=== PATIENT | female | born 1955 | race Caucasian/White ===

== ENCOUNTER 2018-04-19 15:37 | Emergency (ER) | payer MEDICARE ==
[2018-04-19] MEDS ORDERED: D50W (25GM) Syringe IV ONE ×2 (16:01)
[2018-04-19] MEDS ORDERED: CATAPRES PO ONE (16:54)
[2018-04-19 17:29] LABS: Basophils % (Auto) 0.6 % (0.0-1.8); Eosinophils % (Auto) 0.5 % (0.0-4.3); Hemoglobin 11.9 gm/dl (10.1-14.3); Lymphocytes # (Auto) 0.9 K/mm3 (1.2-5.4); Lymphocytes % (Auto) 10.5 % (13.4-35.0); Mean Corpuscular HGB Conc 32 % (30-34); Mean Corpuscular Hemoglobin 28 pg (28-32); Mean Corpuscular Volume 88 fl (79-97); Monocytes # (Auto) 0.3 K/mm3 (0.0-0.8); Monocytes % (Auto) 3.3 % (0.0-7.3); Platelet Count 320 K/mm3 (140-440); Red Blood Count 4.21 M/mm3 (3.65-5.03); Red Cell Distribution Width 16.5 % (13.2-15.2)
[2018-04-19 17:39] LABS: Calcium 8.2 mg/dL (8.4-10.2)
--- NOTE | 2018-04-19 17:49 | Emergency Department Report ---
ED Altered Mental Status HPI - General Chief Complaint: Hypoglycemia Stated Complaint: WEAKNESS Time Seen by Provider: 04/19/18 16:06 Source: family, EMS Mode of arrival: Stretcher Limitations: Language Barrier - History of Present Illness Initial Comments: 62-year-old female with history of diabetes presents to the ED with hypoglycemia. Family states patient was unresponsive at home. EMS was called and blood sugar was 15. One half amp of D50 was given and patient was brought to ED. Family states patient took her insulin but did not eat. Also states patient noncompliant with blood pressure medication. MD Complaint: altered mental status -: Sudden Severity: moderate Consistency of Symptoms: constant Context: diabetes Associated Symptoms: denies other symptoms Treatments Prior to Arrival: glucose - Related Data Home Medications Medication Instructions Recorded Confirmed Last Taken Insulin Aspart [NovoLOG Flexpen] 5 units SQ AC 04/19/18 04/19/18 Unknown Insulin Glargine,Hum.rec.anlog 10 units SQ QHS 04/19/18 04/19/18 Unknown [Lantus] Allergies Allergy/AdvReac Type Severity Reaction Status Date / Time No Known Allergies Allergy Verified 04/19/18 15:55 ED Review of Systems ROS: Stated complaint: WEAKNESS Other details as noted in HPI Comment: All other systems reviewed and negative Constitutional: denies: fever Respiratory: denies: shortness of breath Cardiovascular: denies: chest pain Gastrointestinal: denies: abdominal pain, vomiting Neurological: denies: headache ED Past Medical Hx - Past Medical History Previous Medical History?: Yes Hx Hypertension: Yes Hx Diabetes: Yes - Social History Smoking Status: Never Smoker Substance Use Type: None - Medications Home Medications: Home Medications Medication Instructions Recorded Confirmed Last Taken Type Insulin Aspart [NovoLOG Flexpen] 5 units SQ AC 04/19/18 04/19/18 Unknown History Insulin Glargine,Hum.rec.anlog 10 units SQ QHS 04/19/18 04/19/18 Unknown History [Lantus] ED Physical Exam - General Limitations: Language Barrier General appearance: alert, in no apparent distress - Head Head exam: Present: atraumatic, normocephalic - Eye Eye exam: Present: normal appearance, PERRL, EOMI - ENT ENT exam: Present: normal exam, mucous membranes moist - Neck Neck exam: Present: normal inspection - Respiratory Respiratory exam: Present: normal lung sounds bilaterally. Absent: respiratory distress - Cardiovascular Cardiovascular Exam: Present: regular rate, normal rhythm - GI/Abdominal GI/Abdominal exam: Present: soft. Absent: tenderness - Extremities Exam Extremities exam: Present: normal inspection - Neurological Exam Neurological exam: Present: alert, other (at baseline per family) - Psychiatric Psychiatric exam: Present: normal affect, normal mood - Skin Skin exam: Present: warm, dry, intact, normal color ED Course Vital Signs 04/19/18 04/19/18 04/19/18 15:55 16:01 17:01 Temperature 97.9 F Pulse Rate 65 67 60 Respiratory 18 16 16 Rate Blood Pressure 198/78 Blood Pressure 195/84 192/82 [Left] O2 Sat by Pulse 98 99 100 Oximetry 04/19/18 04/19/18 18:01 19:25 Temperature 97.9 F Pulse Rate 65 68 Respiratory 16 16 Rate Blood Pressure Blood Pressure 167/83 212/82 [Left] O2 Sat by Pulse 100 100 Oximetry - Lab Data Result diagrams: 04/19/18 17:04 04/19/18 17:04 Lab Results 04/19/18 04/19/18 04/19/18 Range/Units 15:47 16:30 17:04 WBC 8.1 (4.5-11.0) K/mm3 RBC 4.21 (3.65-5.03) M/mm3 Hgb 11.9 (10.1-14.3) gm/dl Hct 37.0 (30.3-42.9) % MCV 88 (79-97) fl MCH 28 (28-32) pg MCHC 32 (30-34) % RDW 16.5 H (13.2-15.2) % Plt Count 320 (140-440) K/mm3 Lymph % (Auto) 10.5 L (13.4-35.0) % Rank[place] % (Auto) 3.3 (0.0-7.3) % Eos % (Auto) 0.5 (0.0-4.3) % Baso % (Auto) 0.6 (0.0-1.8) % Lymph # 0.9 L (1.2-5.4) K/mm3 Rankin # 0.3 (0.0-0.8) K/mm3 Eos # 0.0 (0.0-0.4) K/mm3 Baso # 0.0 (0.0-0.1) K/mm3 Seg Neutrophils % 85.1 H (40.0-70.0) % Seg Neutrophils # 6.9 (1.8-7.7) K/mm3 Sodium (137-145) mmol/L Potassium (3.6-5.0) mmol/L Chloride (98-107) mmol/L Carbon Dioxide (22-30) mmol/L Anion Gap mmol/L BUN (7-17) mg/dL Creatinine (0.7-1.2) mg/dL Estimated GFR ml/min BUN/Creatinine Ratio % Glucose (65-100) mg/dL POC Glucose < 40 L 48 L (70-105) Calcium (8.4-10.2) mg/dL 04/19/18 04/19/18 04/19/18 Range/Units 17:04 17:15 18:37 WBC (4.5-11.0) K/mm3 RBC (3.65-5.03) M/mm3 Hgb (10.1-14.3) gm/dl Hct (30.3-42.9) % MCV (79-97) fl MCH (28-32) pg MCHC (30-34) % RDW (13.2-15.2) % Plt Count (140-440) K/mm3 Lymph % (Auto) (13.4-35.0) % Rankin % (Auto) (0.0-7.3) % Eos % (Auto) (0.0-4.3) % Baso % (Auto) (0.0-1.8) % Lymph # (1.2-5.4) K/mm3 Rankin # (0.0-0.8) K/mm3 Eos # (0.0-0.4) K/mm3 Baso # (0.0-0.1) K/mm3 Seg Neutrophils % (40.0-70.0) % Seg Neutrophils # (1.8-7.7) K/mm3 Sodium 129 L (137-145) mmol/L Potassium 4.9 (3.6-5.0) mmol/L Chloride 98.4 (98-107) mmol/L Carbon Dioxide 18 L (22-30) mmol/L Anion Gap 18 mmol/L BUN 25 H (7-17) mg/dL Creatinine 2.4 H (0.7-1.2) mg/dL Estimated GFR 20 ml/min BUN/Creatinine Ratio 10 % Glucose 139 H (65-100) mg/dL POC Glucose 125 H 108 H (70-105) Calcium 8.2 L (8.4-10.2) mg/dL - Medical Decision Making 62-year-old female presented to ED by EMS with hypoglycemia. Initial Accu-Chek was 15. She was given D50 and also given food here in ED. Family states patient took insulin without eating. Patient currently awake and alert. Most recent Accu-Chek is 105. Initial initial systolic BP in the 200s. Patient did not take BP meds today. Clonidine given, BP improved. Labs show a creatinine of 2.4 with normal BUN. Likely chronic given patient's history of hypertension and diabetes, no previous labs for comparison. Will d/c and have patient follow up with PCP. - Differential Diagnosis hypoglycemia Critical care attestation.: If time is entered above; I have spent that time in minutes in the direct care of this critically ill patient, excluding procedure time. ED Disposition Clinical Impression: Hypoglycemia, Essential hypertension Disposition: DC-01 TO HOME OR SELFCARE Is pt being admited?: No Condition: Stable Instructions: Hypertension (ED) Referrals: PRIMARY CARE, [Primary Care Provider] - 3-5 Days Time of Disposition: 18:50
[2018-04-19 19:46] VITALS: BP 212/82
== END 2018-04-19 19:35 | disposition home or self-care (01) ==
LOC: ED 15:37
DX: E11.649 Type 2 diabetes mellitus with hypoglycemia without coma (principal); I10 Essential (primary) hypertension
CPT/HCPCS: 36415; 80048; 82962; 85025; 96374; 96376; 99284

== ENCOUNTER 2019-08-21 14:41 | Inpatient (IN) | payer MEDICARE ==
--- NOTE | 2019-08-21 16:41 | Emergency Department Report ---
HPI - General Chief Complaint: Medical Clearance Time Seen by Provider: 08/21/19 16:23 - HPI HPI: 64-year-old female presents to the emergency department from dialysis with the complaint of uncontrolled blood pressure that caused her to not get dialyzed t [facility]. She normally gets dialysis on Wednesday/Wednesday/Wednesday and did get dialyzed last Wednesday. Her towboat operator is Dr. Lopez. The patient does not speak much Singaporean show the patient's family members at bedside translating. She says that she believes the patient did get some type of blood pressure medication prior to transfer here. The patient denies any chest pain, nausea or vomiting, abdominal pain, edema, or acute shortness of breath. Patient does have history of CVA, diabetes, hypertension, on top of the end-stage renal disease. ED Past Medical Hx - Past Medical History Hx Hypertension: Yes Hx CVA: Yes Hx Diabetes: Yes Hx Renal Disease: Yes (Dialysis M-W-F) - Surgical History Additional Surgical History: AV graft left arm - Social History Smoking Status: Former Smoker Substance Use Type: None - Medications Home Medications: Home Medications Medication Instructions Recorded Confirmed Last Taken Type Insulin Aspart (Nf) [NovoLOG 5 units SQ AC 04/19/18 08/21/19 Unknown History Flexpen] Insulin Glargine,Hum.rec.anlog 10 units SQ QHS 04/19/18 08/21/19 Unknown History [Lantus] Aspirin [Aspirin BABY CHEW TAB] 81 mg PO QDAY 08/21/19 08/21/19 Unknown History AtorvaSTATin [Lipitor] 40 mg PO QHS 08/21/19 08/21/19 Unknown History Calcium Acetate [Phoslo] 1,334 mg PO TID 08/21/19 08/21/19 Unknown History Clopidogrel [Plavix] 75 mg PO DAILY 08/21/19 08/21/19 Unknown History Losartan [Cozaar] 100 mg PO QDAY 08/21/19 08/21/19 Unknown History Metoprolol [Lopressor TAB] 50 mg PO DAILY 08/21/19 08/21/19 Unknown History amLODIPine 10 mg PO DAILY 08/21/19 08/21/19 Unknown History hydrALAZINE [Apresoline TAB] 100 mg PO TID 08/21/19 08/21/19 Unknown History ED Review of Systems ROS: Stated complaint: HYPERTENSION Other details as noted in HPI Comment: All other systems reviewed and negative Constitutional: denies: chills, fever Eyes: denies: eye pain, vision change ENT: denies: ear pain, throat pain Respiratory: denies: cough, wheezing Cardiovascular: denies: chest pain, edema Gastrointestinal: denies: abdominal pain, vomiting Genitourinary: denies: dysuria, discharge Musculoskeletal: denies: back pain, arthralgia Skin: denies: rash, lesions Neurological: denies: headache, weakness Physical Exam - Physical Exam Vital Signs: Vital Signs 08/21/19 16:09 Temperature 97.4 F L Pulse Rate 58 L Respiratory 15 Rate Blood Pressure 131/77 O2 Sat by Pulse 97 Oximetry Physical Exam: GENERAL: The patient is well-developed well-nourished. HEENT: Normocephalic. Atraumatic. Patient has moist mucous membranes. EYES: Extraocular motions are intact. NECK: Supple. Trachea is midline. CHEST/LUNGS: Clear to auscultation. There is no respiratory distress noted. HEART/CARDIOVASCULAR: Regular. There is no tachycardia. There is no murmur. ABDOMEN: Abdomen is soft, nontender. Patient has normal bowel sounds. There is no abdominal distention. SKIN:Skin is warm and dry. . NEURO: The patient is awake, alert, and cooperative. The patient has no focal neurologic deficits. MUSCULOSKELETAL: There is no tenderness or deformity. There is no evidence of acute injury. Patent Left upper extremity dialysis fistula. ED Course Vital Signs 08/21/19 16:09 Temperature 97.4 F L Pulse Rate 58 L Respiratory 15 Rate Blood Pressure 131/77 O2 Sat by Pulse 97 Oximetry - Consultations Consultation #1: 08/21/19 19:53 I spoke with the towboat operator on-call for [facility], Dr. Robbins, who recommended admitting this patient to receive dialysis tomorrow secondary to the patient's hypertensive urgency. ED Medical Decision Making - Lab Data Result diagrams: 08/21/19 16:35 08/21/19 16:35 - Medical Decision Making This patient presents after missing her last dialysis session this morning secondary to extremely elevated blood pressure. It appears that the first blood pressure tested here was a false reading as she immediately went to hypertensive urgency or and accelerated hypertension. She was given some IV hydralazine with some mild improvement. Labs are mostly unremarkable except for her end-stage renal disease. Nephrology was contacted and consult. Patient will be admitted to the hospital for further evaluation and treatment and was accepted for admission by the hospitalist, Dr. Kraus. - Differential Diagnosis accelerated hypertension, CHF, hyperkalemia Critical Care Time: No Critical care attestation.: If time is entered above; I have spent that time in minutes in the direct care of this critically ill patient, excluding procedure time. ED Disposition Clinical Impression: Accelerated hypertension, ESRD needing dialysis Disposition: OP ADMIT IP TO THIS HOSP Is pt being admited?: Yes Condition: Fair Time of Disposition: 19:55
[2019-08-21 16:46] LABS: Basophils # (Auto) 0.1 K/mm3 (0.0-0.1); Basophils % (Auto) 1.4 % (0.0-1.8); Eosinophils # (Auto) 0.8 K/mm3 (0.0-0.4); Eosinophils % (Auto) 9.1 % (0.0-4.3); Lymphocytes # (Auto) 2.1 K/mm3 (1.2-5.4); Lymphocytes % (Auto) 22.6 % (13.4-35.0); Mean Corpuscular HGB Conc 31 % (30-34); Mean Corpuscular Volume 85 fl (79-97); Monocytes # (Auto) 0.8 K/mm3 (0.0-0.8); Monocytes % (Auto) 8.4 % (0.0-7.3); Platelet Count 228 K/mm3 (140-440); Red Blood Count 5.33 M/mm3 (3.65-5.03); Red Cell Distribution Width 17.6 % (13.2-15.2)
[2019-08-21 16:47] LABS: Hematocrit 45.5 % (30.3-42.9)
[2019-08-21 17:05] LABS: Calcium 8.8 mg/dL (8.4-10.2)
[2019-08-21] MEDS ORDERED: hydrALAZINE 20 MG/1 ML INJ IV ONE (17:09)
[2019-08-21] MEDS ORDERED: ALBUTEROL 2.5 MG/3 ML NEBU IH PRN (17:42)
[2019-08-21] MEDS ORDERED: ONDANSETRON 4 MG/2 ML INJ IV PRN (17:42)
[2019-08-21] MEDS ORDERED: ACETAMINOPHEN 325 MG TAB PO PRN (17:42)
--- NOTE | 2019-08-21 17:42 | History and Physical Report ---
History of Present Illness Chief complaint: I could not get dialysis because my blood pressure was high History of present illness: 64-year-old female with ESRD on HD(M,W,F), CVA, DM, HTN presents to the emergency department for evaluation. Patient states that she was in her usual state of health and presented to dialysis clinic today for her routine dialysis. Patient was unable to undergo dialysis due to elevated blood pressure. Patient was instructed to seek further care at [facility]. EMS was notified and upon arrival the patient was found to be in distress. The patient was subsequently transferred to [facility] for further care and evaluation. Patient seen and evaluated in the [facility] emergency department. Lab and imaging studies reviewed. Patient was found to have end-stage renal disease in need of dialysis, malignant hypertension, and metabolic acidosis. Patient placed in observation status and admitted to [facility] unit for medical stabilization due to high risk for decompensation. Patient treated with antihypertensive therapy. Nephrology consulted in ED for urgent dialysis. No reports of fever, chills, chest pain, palpitations, nausea vomiting diarrhea, productive cough, skin rash, recent ill contacts. No prior admission for review. No medication listed at time of admission for reconciliation. Advanced care planning conducted in ED. Past History Past Medical History: ESRD, hypertension, other (See HPI) Past Surgical History: Other (Left upper extremity AV fistula) Social history: , lives with family. denies: smoking, alcohol abuse Family history: hypertension Medications and Allergies Allergies Allergy/AdvReac Type Severity Reaction Status Date / Time Penicillins Allergy Vomiting Verified 08/21/19 17:54 Home Medications Medication Instructions Recorded Confirmed Last Taken Type Insulin Aspart (Nf) [NovoLOG 5 units SQ AC 04/19/18 08/21/19 Unknown History Flexpen] Insulin Glargine,Hum.rec.anlog 10 units SQ QHS 04/19/18 08/21/19 Unknown History [Lantus] Aspirin [Aspirin BABY CHEW TAB] 81 mg PO QDAY 08/21/19 08/21/19 Unknown History AtorvaSTATin [Lipitor] 40 mg PO QHS 08/21/19 08/21/19 Unknown History Calcium Acetate [Phoslo] 1,334 mg PO TID 08/21/19 08/21/19 Unknown History Clopidogrel [Plavix] 75 mg PO DAILY 08/21/19 08/21/19 Unknown History Losartan [Cozaar] 100 mg PO QDAY 08/21/19 08/21/19 Unknown History Metoprolol [Lopressor TAB] 50 mg PO DAILY 08/21/19 08/21/19 Unknown History amLODIPine 10 mg PO DAILY 08/21/19 08/21/19 Unknown History hydrALAZINE [Apresoline TAB] 100 mg PO TID 08/21/19 08/21/19 Unknown History Review of Systems Constitutional: other (High blood pressure), no weight loss, no weight gain, no fever, no sweats Ears, nose, mouth and throat: no ear discharge, no tinnitis, no decreased hearing, no sinus pressure Breasts: no change in shape, no swelling, no mass Cardiovascular: no chest pain, no orthopnea, no rapid/irregular heart beat, no syncope, no lightheadedness Respiratory: no cough, no cough with sputum, no hemoptysis, no dyspnea on exerti on Gastrointestinal: no abdominal pain, no nausea, no diarrhea, no constipation, no hematemesis Genitourinary Female: no pelvic pain, no flank pain, no menorrhagia, no dysuria, no urinary frequency Rectal: no pain, no incontinence, no bleeding Musculoskeletal: no neck stiffness, no shooting arm pain, no arm numbness/tingling, no shooting leg pain, no leg numbness/tingling, no muscle weakness, no myalgias, no limitation of motion Integumentary: no rash, no pruritis, no redness, no sores, no wounds Neurological: no head injury, no transient paralysis, no weakness, no parathesias, no tingling, no tremors, no migraines, no convulsions, no aphasia, no confusion, no memory loss, no changes in smell/taste Psychiatric: no anxiety, no memory loss, no change in sleep habits, no sleep disturbances, no insomnia, no hypersomnia, no change in appetite, no change in libido, no disorientation, no paranoia, no depression, no hopelessness, no anxiety attacks, no difficulties concentrating, no confusion, no irritability, no mood swings Endocrine: no cold intolerance, no heat intolerance, no polyphagia, no excessive thirst, no increase in ring/shoe/hat size, no recent glucocorticoid use Hematologic/Lymphatic: no easy bruising, no easy bleeding, no lymphadenopathy Allergic/Immunologic: no urticaria, no allergic rhinitis, no wheezing, no persistent infections, no anaphylaxis Exam - Constitutional Vitals: Temp Pulse Resp BP Pulse Ox 97.4 F L 58 L 15 131/77 97 08/21/19 16:09 08/21/19 16:09 08/21/19 16:38 08/21/19 16:09 08/21/19 16:09 General appearance: Present: mild distress, cachectic - EENT Eyes: Present: PERRL ENT: hearing intact, clear oral mucosa - Neck Neck: Present: supple, normal ROM - Respiratory Respiratory effort: normal Respiratory: bilateral: CTA - Cardiovascular Heart Sounds: Present: S1 & S2. Absent: rub, click - Extremities Extremities: pulses symmetrical, No edema Peripheral Pulses: within normal limits - Abdominal General gastrointestinal: Present: soft, non-tender, non-distended, normal bowel sounds Female genitourinary: Present: normal - Integumentary Integumentary: Present: clear, warm, dry - Musculoskeletal Musculoskeletal: gait normal, strength equal bilaterally - Psychiatric Psychiatric: appropriate mood/affect, intact judgment & insight - Neurologic Neurologic: CNII-XII intact, moves all extremities Results - Labs CBC & Chem 7: 08/21/19 16:35 08/21/19 16:35 Labs: Abnormal lab results 08/21/19 08/21/19 Range/Units 16:35 16:35 RBC 5.33 H (3.65-5.03) M/mm3 Hct 45.5 H (30.3-42.9) % MCH 26 L (28-32) pg RDW 17.6 H (13.2-15.2) % [place] % (Auto) 8.4 H (0.0-7.3) % Eos % (Auto) 9.1 H (0.0-4.3) % Eos # 0.8 H (0.0-0.4) K/mm3 Sodium 134 L (137-145) mmol/L Chloride 92.8 L (98-107) mmol/L Carbon Dioxide 19 L (22-30) mmol/L BUN 77 H (7-17) mg/dL Creatinine 8.9 H (0.7-1.2) mg/dL Glucose 168 H (65-100) mg/dL Assessment and Plan - Patient Problems (1) ESRD needing dialysis Current Visit: Yes Status: Acute Plan to address problem: Nephrology consulted in ED, BMP, dialysis as per renal team, strict I's/O, daily weight, avoid nephrotoxic agents. Repeat BMP in a.m. (2) Acidosis Current Visit: Yes Status: Acute Plan to address problem: Urgent dialysis, supportive care, BMP, repeat BMP in a.m. (3) Accelerated hypertension Current Visit: Yes Status: Acute Plan to address problem: Monitor blood pressure every shift, continue prehospital antihypertensive therapy, IV hydralazine as needed. (4) DVT prophylaxis Current Visit: Yes Status: Acute Plan to address problem: SCD to bilateral lower extremities while in bed, prophylactic heparin. (5) Advance care planning Current Visit: Yes Status: Acute Plan to address problem: Patient is full code, disease education conducted at the bedside, patient and family knowledge understanding and agreement with care plan, +30 minutes.
[2019-08-21] MEDS ORDERED: DEXTROSE 50% IN WATER (25GM) 50 ML SYRINGE IV PRN (17:44)
[2019-08-21] MEDS ORDERED: CALCIUM ACETATE 667 MG CAP PO SCH (20:00)
[2019-08-21] MEDS: hydrALAZINE 100 MG TAB PO SCH (20:02)
[2019-08-21] MEDS: INSULIN LISPRO 100 UNIT/ML SUB-Q SCH (20:04)
[2019-08-21] MEDS ORDERED: SODIUM CHLORIDE 0.9% 100 ML IV PRN (23:57)
[2019-08-22] MEDS: INSULIN LISPRO 100 UNIT/ML SUB-Q SCH ×4 (00:27→18:43)
[2019-08-22] MEDS: hydrALAZINE 20 MG/1 ML INJ IV PRN ×2 (03:18→12:54)
[2019-08-22 05:29] LABS: Calcium 8.9 mg/dL (8.4-10.2)
[2019-08-22] MEDS: hydrALAZINE 100 MG TAB PO SCH ×3 (08:01→20:59)
[2019-08-22] MEDS ORDERED: NON-FORMULARY EACH (Losartan [Cozaar] 100 MG) PO SCH (10:00)
--- NOTE | 2019-08-22 10:28 | Consultation ---
History of Present Illness - Reason for Consult Consult date: 08/22/19 end stage renal disease, accelerated hypertension Requesting physician: EUGENIO DUNCAN - History of Present Illness 64-year-old female presents to the emergency department from dialysis with the complaint of uncontrolled blood pressure that caused her to not get dialyzed today. She normally gets dialysis on Wednesday/Wednesday/Wednesday and did get dialyzed last Wednesday. Her electron beam welder is Dr. Lopez. The patient does not speak much Syriac show the patient's family members at bedside translating. She says that she believes the patient did get some type of blood pressure medication prior to transfer here. The patient denies any chest pain, nausea or vomiting, abdominal pain, edema, or acute shortness of breath. Patient does have history of CVA, diabetes, hypertension, on top of the end-stage renal disease. - Past Medical History Hx Hypertension: Yes Hx CVA: Yes Hx Diabetes: Yes Hx Renal Disease: Yes (Dialysis M-W-F) - Surgical History Additional Surgical History: AV graft left arm - Social History Smoking Status: Former Smoker Substance Use Type: None ROS: Stated complaint: HYPERTENSION Other details as noted in HPI Comment: All other systems reviewed and negative Constitutional: denies: chills, fever Eyes: denies: eye pain, vision change ENT: denies: ear pain, throat pain Respiratory: denies: cough, wheezing Cardiovascular: denies: chest pain, edema Gastrointestinal: denies: abdominal pain, vomiting Genitourinary: denies: dysuria, discharge Musculoskeletal: denies: back pain, arthralgia Skin: denies: rash, lesions Neurological: denies: headache, weakness Past History Past Medical History: ESRD, hypertension, other (See HPI) Past Surgical History: Other (Left upper extremity AV fistula) Social history: , lives with family. denies: smoking, alcohol abuse Family history: hypertension Medications and Allergies Allergies Allergy/AdvReac Type Severity Reaction Status Date / Time Penicillins Allergy Vomiting Verified 08/21/19 17:54 Home Medications Medication Instructions Recorded Confirmed Last Taken Type Insulin Aspart (Nf) [NovoLOG 5 units SQ AC 04/19/18 08/21/19 Unknown History Flexpen] Insulin Glargine,Hum.rec.anlog 10 units SQ QHS 04/19/18 08/21/19 Unknown History [Lantus] Aspirin [Aspirin BABY CHEW TAB] 81 mg PO QDAY 08/21/19 08/21/19 Unknown History AtorvaSTATin [Lipitor] 40 mg PO QHS 08/21/19 08/21/19 Unknown History Calcium Acetate [Phoslo] 1,334 mg PO TID 08/21/19 08/21/19 Unknown History Clopidogrel [Plavix] 75 mg PO DAILY 08/21/19 08/21/19 Unknown History Losartan [Cozaar] 100 mg PO QDAY 08/21/19 08/21/19 Unknown History Metoprolol [Lopressor TAB] 50 mg PO DAILY 08/21/19 08/21/19 Unknown History amLODIPine 10 mg PO DAILY 08/21/19 08/21/19 Unknown History hydrALAZINE [Apresoline TAB] 100 mg PO TID 08/21/19 08/21/19 Unknown History Active Meds: Active Medications Acetaminophen (Tylenol) 650 mg PO Q4H PRN PRN Reason: Pain MILD(1-3)/Fever >100.5/SMITH Albuterol (Proventil) 2.5 mg IH Q4HRT PRN PRN Reason: Shortness Of Breath Amlodipine Besylate (Amlodipine) 10 mg PO DAILY [facility] Aspirin (Baby Aspirin) 81 mg PO QDAY [facility] Atorvastatin Calcium (Lipitor) 40 mg PO QHS [facility] Last Admin: 08/21/19 22:14 Dose: 40 mg Documented by: Calcium Acetate (Phoslo) 1,334 mg PO TIDWM [facility] Clopidogrel Bisulfate (Plavix) 75 mg PO DAILY [facility] Dextrose (D50w (25gm) Syringe) 50 ml IV Q30MIN PRN; Protocol PRN Reason: Hypoglycemia Hydralazine HCl (Apresoline) 100 mg PO TID [facility] Last Admin: 08/22/19 08:01 Dose: Not Given Documented by: Hydralazine HCl (Apresoline) 10 mg IV Q4HR PRN PRN Reason: HTN SYS>160 Last Admin: 08/22/19 03:18 Dose: 10 mg Documented by: Sodium Chloride (Nacl 0.9%) 100 mls @ 999 mls/hr IV HERMINIO PRN PRN Reason: Hypotension Insulin Human Lispro (Humalog) 0 unit SUB-Q Q6HR [facility]; Protocol Last Admin: 08/22/19 06:05 Dose: Not Given Documented by: Losartan Potassium (Cozaar) 100 mg PO QDAY [facility] Metoprolol Tartrate (Metoprolol) 50 mg PO DAILY [facility] Ondansetron HCl (Zofran) 4 mg IV Q8H PRN PRN Reason: Nausea And Vomiting Sodium Chloride (Sodium Chloride Flush Syringe 10 Ml) 10 ml IV BID [facility] Last Admin: 08/21/19 22:13 Dose: 10 ml Documented by: Sodium Chloride (Sodium Chloride Flush Syringe 10 Ml) 10 ml IV PRN PRN PRN Reason: LINE FLUSH Exam - Vital Signs Vital signs: Vital Signs Pulse Resp BP Pulse Ox 56 L 16 138/81 96 08/21/19 16:00 08/21/19 16:00 08/21/19 16:00 08/21/19 16:00 - Physical Exam Narrative exam: GENERAL: The patient is well-developed well-nourished. HEENT: Normocephalic. Atraumatic. Patient has moist mucous membranes. EYES: Extraocular motions are intact. NECK: Supple. Trachea is midline. CHEST/LUNGS: Clear to auscultation. There is no respiratory distress noted. HEART/CARDIOVASCULAR: Regular. There is no tachycardia. There is no murmur. ABDOMEN: Abdomen is soft, nontender. Patient has normal bowel sounds. There is no abdominal distention. SKIN:Skin is warm and dry. . NEURO: The patient is awake, alert, and cooperative. The patient has no focal neurologic deficits. MUSCULOSKELETAL: There is no tenderness or deformity. There is no evidence of acute injury. Patent Left upper extremity dialysis fistula. Results - Lab Results 08/21/19 16:35 08/22/19 04:11 Most recent lab results Calcium 8.9 mg/dL (8.4-10.2) 08/22/19 04:11 Assessment and Plan Impression: * ESRD * Acc HTN * met acidosis * non compliance with medical regimen * volume overload Plan: * HD today and q MWF * uf as tolerated with hd * strict i/os * restart home bp meds, family is missing 2 bp meds * renal diet * ok to dc home once bp is controlled
[2019-08-22] MEDS: CALCIUM ACETATE 667 MG CAP PO SCH ×3 (10:32→18:46)
[2019-08-22 10:59] LABS: Hepatitis C Virus Antibody Non-Reactive (NonReactive)
[2019-08-22 11:00] LABS: Hepatitis B Surface Antigen Non-Reactive (Negative)
[2019-08-22] MEDS ORDERED: SODIUM CHLORIDE*PRIMING MACHINE ONLY FOR DIALYSIS MC ONE (12:59)
[2019-08-22] MEDS: METOPROLOL TARTRATE 50 MG TAB PO SCH (14:32)
[2019-08-22] MEDS: LOSARTAN 50 MG TAB PO SCH (14:32)
[2019-08-22] MEDS: ASPIRIN 81 MG TAB CHEW PO SCH (14:33)
[2019-08-22] MEDS: CLOPIDOGREL 75 MG TAB PO SCH (14:33)
[2019-08-22] MEDS: amLODIPine 10 MG TAB PO SCH (14:33)
--- NOTE | 2019-08-22 16:37 | Progress Note ---
Assessment and Plan Assessment and plan: (1) ESRD needing dialysis Current Visit: Yes Status: Acute Plan to address problem: Nephrology consulted in ED, BMP, dialysis as per renal team, strict I's/O, daily weight, avoid nephrotoxic agents. Repeat BMP in a.m. (2) Acidosis Current Visit: Yes Status: Acute Plan to address problem: Urgent dialysis, supportive care, BMP, repeat BMP in a.m. (3) Accelerated hypertension Current Visit: Yes Status: Acute Plan to address problem: Monitor blood pressure every shift, continue prehospital antihypertensive therapy, IV hydralazine as needed. (4) DVT prophylaxis Current Visit: Yes Status: Acute Plan to address problem: SCD to bilateral lower extremities while in bed, prophylactic heparin. (5) Advance care planning Current Visit: Yes Status: Acute Plan to address problem: Patient is full code, disease education conducted at the bedside, patient and family knowledge understanding and agreement with care plan, +30 minutes. Hospitalist Physical - Physical exam Narrative exam: GEN: Not in acute distress, lying in bed,obese HEENT: Normocephalic, atraumatic, Neck: supple, No JVD Lungs: Clear to auscultation bilaterally, no wheeze, heart;S1 and S2 reg, no murmurs Abd:soft, non tender, non distended, normal bowel sounds Ext: No edema, no clubbing, no cyanosis Neuro: AAO X 3, no focal neurological signs - Constitutional Vitals: Temp Pulse Resp BP Pulse Ox 97.8 F 61 18 164/56 99 08/22/19 14:23 08/22/19 14:32 08/22/19 14:23 08/22/19 14:32 08/22/19 14:23 General appearance: Present: mild distress, cachectic Results - Labs CBC & Chem 7: 08/21/19 16:35 08/22/19 04:11 Labs: Laboratory Last Values WBC 9.3 K/mm3 (4.5-11.0) 08/21/19 16:35 RBC 5.33 M/mm3 (3.65-5.03) H 08/21/19 16:35 Hgb 14.0 gm/dl (10.1-14.3) 08/21/19 16:35 Hct 45.5 % (30.3-42.9) H 08/21/19 16:35 MCV 85 fl (79-97) 08/21/19 16:35 MCH 26 pg (28-32) L 08/21/19 16:35 MCHC 31 % (30-34) 08/21/19 16:35 RDW 17.6 % (13.2-15.2) H 08/21/19 16:35 Plt Count 228 K/mm3 (140-440) 08/21/19 16:35 Lymph % (Auto) 22.6 % (13.4-35.0) 08/21/19 16:35 Henry % (Auto) 8.4 % (0.0-7.3) H 08/21/19 16:35 Eos % (Auto) 9.1 % (0.0-4.3) H 08/21/19 16:35 Baso % (Auto) 1.4 % (0.0-1.8) 08/21/19 16:35 Lymph # 2.1 K/mm3 (1.2-5.4) 08/21/19 16:35 Henry # 0.8 K/mm3 (0.0-0.8) 08/21/19 16:35 Eos # 0.8 K/mm3 (0.0-0.4) H 08/21/19 16:35 Baso # 0.1 K/mm3 (0.0-0.1) 08/21/19 16:35 Seg Neutrophils % 58.5 % (40.0-70.0) 08/21/19 16:35 Seg Neutrophils # 5.4 K/mm3 (1.8-7.7) 08/21/19 16:35 Sodium 136 mmol/L (137-145) L 08/22/19 04:11 Potassium 4.6 mmol/L (3.6-5.0) 08/22/19 04:11 Chloride 93.1 mmol/L (98-107) L 08/22/19 04:11 Carbon Dioxide 20 mmol/L (22-30) L 08/22/19 04:11 Anion Gap 28 mmol/L 08/22/19 04:11 BUN 89 mg/dL (7-17) H 08/22/19 04:11 Creatinine 10.0 mg/dL (0.7-1.2) H 08/22/19 04:11 Estimated GFR 4 ml/min 08/22/19 04:11 BUN/Creatinine Ratio 9 % 08/22/19 04:11 Glucose 131 mg/dL (65-100) H 08/22/19 04:11 POC Glucose 169 (70-105) H 08/22/19 16:30 Calcium 8.9 mg/dL (8.4-10.2) 08/22/19 04:11 Hepatitis A IgM Ab Non-reactive (NonReactive) 08/22/19 08:29 Hep Bs Antigen Non-reactive (Negative) 08/22/19 08:29 Hep B Core IgM Ab Non-reactive (NonReactive) 08/22/19 08:29 Hepatitis C Antibody Non-reactive (NonReactive) 08/22/19 08:29 Active Medications - Current Medications Current Medications: Generic Name Dose Route Start Last Admin Trade Name Freq PRN Reason Stop Dose Admin Acetaminophen 650 mg 08/21/19 17:42 Tylenol PO Q4H PRN Pain MILD(1-3)/Fever >100.5/SMITH Albuterol 2.5 mg 08/21/19 17:42 Proventil IH Q4HRT PRN Shortness Of Breath Amlodipine Besylate 10 mg 08/22/19 10:00 08/22/19 14:33 Amlodipine PO 10 mg DAILY MARIA TERESA Administration Aspirin 81 mg 08/22/19 10:00 08/22/19 14:33 Baby Aspirin PO 81 mg QDAY MARIA TERESA Administration Atorvastatin Calcium 40 mg 08/21/19 22:00 08/21/19 22:14 Lipitor PO 40 mg QHS MARIA TERESA Administration Calcium Acetate 1,334 mg 08/22/19 08:00 08/22/19 14:31 Phoslo PO 1,334 mg TIDWM MARIA TERESA Administration Clopidogrel Bisulfate 75 mg 08/22/19 10:00 08/22/19 14:33 Plavix PO 75 mg DAILY MARIA TERESA Administration Dextrose 50 ml 08/21/19 17:44 D50w (25gm) Syringe IV Q30MIN PRN Hypoglycemia Protocol Hydralazine HCl 100 mg 08/21/19 20:00 08/22/19 14:33 Apresoline PO 100 mg TID MARIA TERESA Administration Hydralazine HCl 10 mg 08/21/19 17:46 08/22/19 12:54 Apresoline IV 10 mg Q4HR PRN Administration HTN SYS>160 Sodium Chloride 100 mls @ 999 mls/hr 08/21/19 23:57 Nacl 0.9% IV HERMINIO PRN Hypotension Insulin Human Lispro 0 unit 08/21/19 18:00 08/22/19 12:00 Humalog SUB-Q Not Given Q6HR [facility] Protocol Losartan Potassium 100 mg 08/22/19 10:00 08/22/19 14:32 Cozaar PO 100 mg QDAY MARIA TERESA Administration Metoprolol Tartrate 50 mg 08/22/19 10:00 08/22/19 14:32 Metoprolol PO 50 mg DAILY MARIA TERESA Administration Ondansetron HCl 4 mg 08/21/19 17:42 Zofran IV Q8H PRN Nausea And Vomiting Sodium Chloride 10 ml 08/21/19 22:00 08/22/19 14:35 Sodium Chloride Flush Syringe 10 Ml IV 10 ml BID MARIA TERESA Administration Sodium Chloride 10 ml 08/21/19 17:42 Sodium Chloride Flush Syringe 10 Ml IV PRN PRN LINE FLUSH
[2019-08-23] MEDS: INSULIN LISPRO 100 UNIT/ML SUB-Q SCH ×4 (01:08→17:28)
[2019-08-23] MEDS: hydrALAZINE 20 MG/1 ML INJ IV PRN ×2 (02:05→12:51)
[2019-08-23] MEDS: hydrALAZINE 100 MG TAB PO SCH ×2 (08:09→16:53)
[2019-08-23] MEDS: CALCIUM ACETATE 667 MG CAP PO SCH ×3 (08:09→17:28)
[2019-08-23] MEDS: METOPROLOL TARTRATE 50 MG TAB PO SCH ×2 (08:42→10:16)
[2019-08-23] MEDS: LOSARTAN 50 MG TAB PO SCH ×2 (08:42→10:16)
[2019-08-23] MEDS: ASPIRIN 81 MG TAB CHEW PO SCH ×2 (08:42→10:16)
[2019-08-23] MEDS: CLOPIDOGREL 75 MG TAB PO SCH ×2 (08:42→10:16)
[2019-08-23] MEDS: amLODIPine 10 MG TAB PO SCH ×2 (08:43→10:16)
[2019-08-23] MEDS ORDERED: SODIUM CHLORIDE 0.9% 1000 ML 2,000 ML ONE (10:16)
--- NOTE | 2019-08-23 10:25 | Progress Note ---
Assessment and Plan Impression: * ESRD * Acc HTN * met acidosis * non compliance with medical regimen * volume overload Plan: * HD today and q MWF * uf as tolerated with hd * strict i/os * restart home bp meds, family is missing 2 bp meds * renal diet * ok to dc home after hd today Subjective Date of service: 08/23/19 Principal diagnosis: esrd Interval history: resting in bed Objective - Exam Narrative Exam: GENERAL: The patient is well-developed well-nourished. HEENT: Normocephalic. Atraumatic. Patient has moist mucous membranes. EYES: Extraocular motions are intact. NECK: Supple. Trachea is midline. CHEST/LUNGS: Clear to auscultation. There is no respiratory distress noted. HEART/CARDIOVASCULAR: Regular. There is no tachycardia. There is no murmur. ABDOMEN: Abdomen is soft, nontender. Patient has normal bowel sounds. There is no abdominal distention. SKIN:Skin is warm and dry. . NEURO: The patient is awake, alert, and cooperative. The patient has no focal neurologic deficits. MUSCULOSKELETAL: There is no tenderness or deformity. There is no evidence of acute injury. Patent Left upper extremity dialysis fistula. - Vital Signs Vital signs: Vital Signs - 12hr 08/23/19 08/23/19 08/23/19 01:57 02:05 04:01 Temperature 98.6 F Pulse Rate 63 63 61 Respiratory 20 Rate Blood Pressure 179/62 179/62 O2 Sat by Pulse 94 Oximetry O2 Sat by Pulse Oximetry [ Anterior Bilateral] 08/23/19 08/23/19 08/23/19 07:30 09:10 09:21 Temperature 98.5 F 98.4 F Pulse Rate 65 64 63 Respiratory 20 18 Rate Blood Pressure 168/62 173/72 171/74 O2 Sat by Pulse 95 Oximetry O2 Sat by Pulse 100 Oximetry [ Anterior Bilateral] 08/23/19 08/23/19 08/23/19 09:30 09:45 10:00 Temperature Pulse Rate 63 63 63 Respiratory Rate Blood Pressure 175/75 157/73 160/70 O2 Sat by Pulse Oximetry O2 Sat by Pulse Oximetry [ Anterior Bilateral] - Lab 08/21/19 16:35 08/22/19 04:11 Most recent lab results Calcium 8.9 mg/dL (8.4-10.2) 08/22/19 04:11 Medications & Allergies - Medications Allergies/Adverse Reactions: Allergies Penicillins Allergy (Verified 08/21/19 17:54) Vomiting Home Medications: Home Medications Medication Instructions Recorded Confirmed Last Taken Type Insulin Aspart (Nf) [NovoLOG 5 units SQ AC 04/19/18 08/21/19 Unknown History Flexpen] Insulin Glargine,Hum.rec.anlog 10 units SQ QHS 04/19/18 08/21/19 Unknown History [Lantus] Aspirin [Aspirin BABY CHEW TAB] 81 mg PO QDAY 08/21/19 08/21/19 Unknown History AtorvaSTATin [Lipitor] 40 mg PO QHS 08/21/19 08/21/19 Unknown History Calcium Acetate [Phoslo] 1,334 mg PO TID 08/21/19 08/21/19 Unknown History Clopidogrel [Plavix] 75 mg PO DAILY 08/21/19 08/21/19 Unknown History Losartan [Cozaar] 100 mg PO QDAY 08/21/19 08/21/19 Unknown History Metoprolol [Lopressor TAB] 50 mg PO DAILY 08/21/19 08/21/19 Unknown History amLODIPine 10 mg PO DAILY 08/21/19 08/21/19 Unknown History hydrALAZINE [Apresoline TAB] 100 mg PO TID 08/21/19 08/21/19 Unknown History Active Medications: Generic Name Dose Route Start Last Admin Trade Name Freq PRN Reason Stop Dose Admin Acetaminophen 650 mg 08/21/19 17:42 Tylenol PO Q4H PRN Pain MILD(1-3)/Fever >100.5/SMITH Albuterol 2.5 mg 08/21/19 17:42 Proventil IH Q4HRT PRN Shortness Of Breath Amlodipine Besylate 10 mg 08/22/19 10:00 08/23/19 10:16 Amlodipine PO Not Given DAILY MARIA TERESA Aspirin 81 mg 08/22/19 10:00 08/23/19 10:16 Baby Aspirin PO Not Given QDAY MARIA TERESA Atorvastatin Calcium 40 mg 08/21/19 22:00 08/22/19 21:00 Lipitor PO 40 mg QHS MARIA TERESA Administration Calcium Acetate 1,334 mg 08/22/19 08:00 08/23/19 08:09 Phoslo PO 1,334 mg TIDWM MARIA TERESA Administration Clopidogrel Bisulfate 75 mg 08/22/19 10:00 08/23/19 10:16 Plavix PO Not Given DAILY MARIA TERESA Dextrose 50 ml 08/21/19 17:44 D50w (25gm) Syringe IV Q30MIN PRN Hypoglycemia Protocol Hydralazine HCl 100 mg 08/21/19 20:00 08/23/19 08:09 Apresoline PO 100 mg TID MARIA TERESA Administration Hydralazine HCl 10 mg 08/21/19 17:46 08/23/19 02:05 Apresoline IV 10 mg Q4HR PRN Administration HTN SYS>160 Sodium Chloride 100 mls @ 999 mls/hr 08/21/19 23:57 Nacl 0.9% IV HERMINIO PRN Hypotension Insulin Human Lispro 0 unit 08/21/19 18:00 08/23/19 06:29 Humalog SUB-Q 4 unit Q6HR MARIA TERESA Administration Protocol Losartan Potassium 100 mg 08/22/19 10:00 08/23/19 10:16 Cozaar PO Not Given QDAY [facility] Metoprolol Tartrate 50 mg 08/22/19 10:00 08/23/19 10:16 Metoprolol PO Not Given DAILY [facility] Ondansetron HCl 4 mg 08/21/19 17:42 Zofran IV Q8H PRN Nausea And Vomiting Sodium Chloride 10 ml 08/21/19 22:00 08/23/19 10:17 Sodium Chloride Flush Syringe 10 Ml IV Not Given BID MARIA TERESA Sodium Chloride 10 ml 08/21/19 17:42 Sodium Chloride Flush Syringe 10 Ml IV PRN PRN LINE FLUSH
--- NOTE | 2019-08-23 13:17 | Discharge Summary ---
Providers - Providers Date of Admission: 08/23/19 08:18 Date of discharge: 08/23/19 Attending physician: JACK MCGARRY 08/21/19 17:18 Consult to Physician [CONS] Routine Comment: called answ. serv./ neli Consulting Provider: MAGDALENA DESAI Physician Instructions: Reason For Exam: dialysis 08/22/19 05:32 Consult to Wound/ET Nurse [CONS] Routine Reason For Exam: wound eval 08/22/19 09:08 Physical Therapy Evaluation and Treat [CONS] Routine Comment: Reason For Exam: Weakness Primary care physician: BINDING CUTTER Hospitalization Condition: Fair Disposition: DC-01 TO HOME OR SELFCARE Exam - Constitutional Vitals: Temp Pulse Resp BP Pulse Ox 98.4 F 61 18 184/77 100 08/23/19 09:10 08/23/19 12:51 08/23/19 09:10 08/23/19 12:51 08/23/19 09:10 Plan Activity: advance as tolerated Diet: low fat, low cholesterol, low salt, renal Plan of Treatment: 1.Follow up with PCP in 1 week. 2.Continue routine hemodialysis as scheduled Follow up with: PRIMARY CARE, [Primary Care Provider] - 3-5 Days
[2019-08-23] MEDS ORDERED: cloNIDine 0.1 MG TAB PO ONE (16:07)
[2019-08-23 17:46] VITALS: BP 168/68
[2019-08-23] MEDS ORDERED: cloNIDine 0.2 MG TAB PO ONE (18:00)
== END 2019-08-23 19:15 | disposition home or self-care (01) | DRG 682 ==
LOC: ED 14:41 → 2B-ACE 17:42 → OBSVTOIN 08-23 08:18
PROVIDERS: ADMIT Internal Medicine; ATTEND Internal Medicine
PROC: 5A1D70Z Performance of Urinary Filtration, Intermittent, Less than 6 Hours Per Day (ICD-10-PCS; 2019-08-22)
PROC: 5A1D70Z Performance of Urinary Filtration, Intermittent, Less than 6 Hours Per Day (ICD-10-PCS; principal; 2019-08-23)
DX: I12.0 Hypertensive chronic kidney disease with stage 5 chronic kidney disease or end stage renal disease (principal); N18.6 End stage renal disease; E87.2 Acidosis; E11.22 Type 2 diabetes mellitus with diabetic chronic kidney disease; E87.70 Fluid overload, unspecified; Z88.1 Allergy status to other antibiotic agents; Z99.2 Dependence on renal dialysis; Z86.73 Personal history of transient ischemic attack (TIA), and cerebral infarction without residual deficits; Z87.891 Personal history of nicotine dependence; Z79.4 Long term (current) use of insulin; Z79.82 Long term (current) use of aspirin; Z79.899 Other long term (current) drug therapy; Z82.49 Family history of ischemic heart disease and other diseases of the circulatory system; Z91.14 Patient's other noncompliance with medication regimen
CPT/HCPCS: 36415; 80048; 80074; 82962; 85025; G0378; A9270-GY; J0360; J1815; J7030

== ENCOUNTER 2019-10-13 16:59 | Emergency (ER) | payer MEDICARE ==
--- NOTE | 2019-10-13 17:11 | Emergency Department Report ---
HPI - General Time Seen by Provider: 10/13/19 17:00 - HPI HPI: Room 18 The patient is a 64-year-old female present with a chief complaint of cardiac arrest. Per EMS the patient was receiving hemodialysis when she went unresponsive. EMS arrived to find the patient in cardiac arrest and ACLS protocols were initiated. Patient was intubated with a LMA. Prior to arrival there was return of spontaneous circulation. Upon arrival to the ED LMA was removed and patient was intubated by myself using a glidescope while wearing PPE. ED Past Medical Hx - Past Medical History Hx Hypertension: Yes Hx CVA: Yes Hx Diabetes: Yes Hx Renal Disease: Yes (Dialysis M-W-F) - Surgical History Past Surgical History?: No Additional Surgical History: AV graft left arm - Family History Family history: no significant - Social History Smoking Status: Unknown if ever smoked Substance Use Type: None - Medications Home Medications: Home Medications Medication Instructions Recorded Confirmed Last Taken Type Insulin Aspart (Nf) [NovoLOG 5 units SQ AC 04/19/18 08/21/19 Unknown History Flexpen] Insulin Glargine,Hum.rec.anlog 10 units SQ QHS 04/19/18 08/21/19 Unknown History [Lantus] Aspirin [Aspirin BABY CHEW TAB] 81 mg PO QDAY 08/21/19 08/21/19 Unknown History AtorvaSTATin [Lipitor] 40 mg PO QHS 08/21/19 08/21/19 Unknown History Calcium Acetate [Phoslo] 1,334 mg PO TID 08/21/19 08/21/19 Unknown History Clopidogrel [Plavix] 75 mg PO DAILY 08/21/19 08/21/19 Unknown History Losartan [Cozaar] 100 mg PO QDAY 08/21/19 08/21/19 Unknown History Metoprolol [Lopressor TAB] 50 mg PO DAILY 08/21/19 08/21/19 Unknown History amLODIPine 10 mg PO DAILY 08/21/19 08/21/19 Unknown History hydrALAZINE [Apresoline TAB] 100 mg PO TID 08/21/19 08/21/19 Unknown History ED Review of Systems ROS: Stated complaint: CARDIAC ARREST Other details as noted in HPI Comment: Unobtainable due to pts medical conditions Physical Exam - Physical Exam Physical Exam: GENERAL: The patient is well-developed well-nourished female lying on stretcher being bagged via EMS. [] HEENT: Normocephalic. Atraumatic. NECK: Supple. No meningitic signs are noted. There is no adenopathy noted. CHEST/LUNGS: Trachea midline. Breath sounds equal bilaterally with bagging after intubation HEART/CARDIOVASCULAR: Regular. There is no tachycardia. There is no gallop rub or murmur. ABDOMEN: Abdomen is soft, nontender. Patient has normal bowel sounds. There is no abdominal distention. SKIN: There is no rash. There is no edema. There is no diaphoresis. NEURO: GCS 3 T MUSCULOSKELETAL: There is no evidence of acute injury. ED Course - Consultations Consultation #1: 10/13/19 20:48 Case discussed with [place] transfer line, [place] neurosurgeon Dr. Conklin and [place] utility helicopter repairer Dr. Richardson- will accept patient in transfer - Intubation Time Out Performed: No Sedative: none Laryngoscope: fiberoptic video scope Size: 3 Assist Device Used: fiberoptic device ET Tube Size: 7 Tube Secured Depth (cm): 21 Tube Secured Location: lips Tube Placement Confirmation: visualized tube passing t, equal breath sounds bilat, no breath sounds over epi, confirmation by capnometr Patient Tolerated Procedure: no complications Intubation Complications: none ED Medical Decision Making - Lab Data Result diagrams: 10/13/19 19:09 10/13/19 19:09 Laboratory Tests 10/13/19 10/13/19 10/13/19 17:50 19:09 19:09 WBC 18.1 H RBC 4.09 Hgb 10.6 Hct 34.5 MCV 84 MCH 26 L MCHC 31 RDW 16.2 H Plt Count 143 Add Manual Diff Complete Total Counted 100 Seg Neutrophils % Horse Breaker Seg Neuts % (Manual) 87.0 H Band Neutrophils % 4.0 Lymphocytes % (Manual) 5.0 L Reactive Lymphs % (Man) 0 Monocytes % (Manual) 1.0 Eosinophils % (Manual) 0 Basophils % (Manual) 0 Metamyelocytes % 3.0 Myelocytes % 0 Promyelocytes % 0 Blast Cells % 0 Nucleated RBC % Not Reportable Seg Neutrophils # Man 15.7 H Band Neutrophils # 0.7 Lymphocytes # (Manual) 0.9 L Abs React Lymphs (Man) 0.0 Monocytes # (Manual) 0.2 Eosinophils # (Manual) 0.0 Basophils # (Manual) 0.0 Metamyelocytes # 0.5 Myelocytes # 0.0 Promyelocytes # 0.0 Blast Cells # 0.0 WBC Morphology Not Reportable Hypersegmented Neuts Not Reportable Hyposegmented Neuts Not Reportable Hypogranular Neuts Not Reportable Smudge Cells Not Reportable Toxic Granulation Not Reportable Toxic Vacuolation Not Reportable Dohle Bodies Not Reportable Pelger-Huet Anomaly Not Reportable Ghulam Rods Not Reportable Platelet Estimate Consistent w auto Clumped Platelets Not Reportable Plt Clumps, EDTA Not Reportable Large Platelets Not Reportable Giant Platelets Not Reportable Platelet Satelliting Not Reportable Plt Morphology Comment Not Reportable RBC Morphology Not Reportable Dimorphic RBCs Not Reportable Polychromasia Rare Hypochromasia Not Reportable Poikilocytosis Not Reportable Anisocytosis Not Reportable Microcytosis Not Reportable Macrocytosis Few Spherocytes Not Reportable Pappenheimer Bodies Not Reportable Sickle Cells Not Reportable Target Cells Not Reportable Tear Drop Cells Not Reportable Ovalocytes Few Helmet Cells Not Reportable Worthy-St. Mary Bodies Not Reportable Shafer Rings Not Reportable Mach[place]ongo Cells Rare Bite Cells Not Reportable Crenated Cell Not Reportable Elliptocytes Not Reportable Acanthocytes (Spur) Not Reportable Rouleaux Not Reportable Hemoglobin C Crystals Not Reportable Schistocytes Not Reportable Malaria parasites Not Reportable José Miguel Bodies Not Reportable Hem Pathologist Commnt No PT 15.8 H INR 1.24 H APTT 34.1 ABG pH 7.243 L ABG pCO2 28.1 ABG pO2 585.2 H ABG HCO3 11.9 L ABG O2 Saturation 99.4 H ABG O2 Content 17.0 ABG Base Excess -14.1 L ABG Hemoglobin 11.0 L ABG Carboxyhemoglobin 0.2 ABG Methemoglobin 0.2 VBG pH Oxyhemoglobin 98.9 FiO2 100 Sodium Potassium Chloride Carbon Dioxide Anion Gap BUN Creatinine Estimated GFR BUN/Creatinine Ratio Glucose Calcium Magnesium Total Bilirubin AST ALT Alkaline Phosphatase Total Creatine Kinase CK-MB (CK-2) CK-MB (CK-2) Rel Index Troponin T Total Protein Albumin Albumin/Globulin Ratio Procalcitonin 10/13/19 10/13/19 10/13/19 19:09 19:09 19:09 WBC RBC Hgb Hct MCV MCH MCHC RDW Plt Count Add Manual Diff Total Counted Seg Neutrophils % Seg Neuts % (Manual) Band Neutrophils % Lymphocytes % (Manual) Reactive Lymphs % (Man) Monocytes % (Manual) Eosinophils % (Manual) Basophils % (Manual) Metamyelocytes % Myelocytes % Promyelocytes % Blast Cells % Nucleated RBC % Seg Neutrophils # Man Band Neutrophils # Lymphocytes # (Manual) Abs React Lymphs (Man) Monocytes # (Manual) Eosinophils # (Manual) Basophils # (Manual) Metamyelocytes # Myelocytes # Promyelocytes # Blast Cells # WBC Morphology Hypersegmented Neuts Hyposegmented Neuts Hypogranular Neuts Smudge Cells Toxic Granulation Toxic Vacuolation Dohle Bodies Pelger-Huet Anomaly Ghulam Rods Platelet Estimate Clumped Platelets Plt Clumps, EDTA Large Platelets Giant Platelets Platelet Satelliting Plt Morphology Comment RBC Morphology Dimorphic RBCs Polychromasia Hypochromasia Poikilocytosis Anisocytosis Microcytosis Macrocytosis Spherocytes Pappenheimer Bodies Sickle Cells Target Cells Tear Drop Cells Ovalocytes Helmet Cells Worthy-St. [place] Bodies Shafer Rings Mach[place]ongo Cells Bite Cells Crenated Cell Elliptocytes Acanthocytes (Spur) Rouleaux Hemoglobin C Crystals Schistocytes Malaria parasites José Miguel Bodies Hem Pathologist Commnt PT INR APTT ABG pH ABG pCO2 ABG pO2 ABG HCO3 ABG O2 Saturation ABG O2 Content ABG Base Excess ABG Hemoglobin ABG Carboxyhemoglobin ABG Methemoglobin VBG pH 7.208 L Oxyhemoglobin FiO2 Sodium 127 L Potassium 3.7 Chloride 95.0 L Carbon Dioxide 11 L Anion Gap 25 BUN 18 H Creatinine 3.0 H Estimated GFR 16 BUN/Creatinine Ratio 6 Glucose 292 H Calcium 8.1 L Magnesium 1.90 Total Bilirubin 0.30 AST 147 H ALT 100 H Alkaline Phosphatase 126 Total Creatine Kinase 159 H CK-MB (CK-2) 6.2 H CK-MB (CK-2) Rel Index 3.8 Troponin T 0.092 H Total Protein 6.8 Albumin 3.4 L Albumin/Globulin Ratio 1.0 Procalcitonin 0.89 - EKG Data -: EKG Interpreted by Me EKG shows normal: sinus rhythm Rate: normal - EKG Data Interpretation: other (ST depression in leads V4, V5, V6) - Radiology Data Radiology results: report reviewed (CT head), image reviewed (CT head) [facility] [address] [place] [address] Cat Scan Report Signed Patient: KENDY DUEÑAS MR#: [id number] : 1955 Acct:[id number] Age/Sex: 64 / F ADM Date: 10/13/19 Loc: ED Attending Dr: Ordering Physician: KODY HERNADEZ MD Date of Service: 10/13/19 Procedure(s): CT head/brain wo con Accession Number(s): [id number] cc: KODY HERNADEZ MD CT head/brain wo con INDICATION / CLINICAL INFORMATION: 64 years Female; Cardiac arrest, unresponsive. TECHNIQUE: Routine CT head without contrast. All CT scans at this location are performed using CT dose reduction for ALARA by means of automated exposure control. COMPARISON: None. FINDINGS: BRAIN / INTRACRANIAL CONTENTS: Small area of increased attenuation is seen in the periphery of the precentral gyrus rightward of midline. This area could represent cortical laminar encroaches from a subacute to chronic infarct, a cavernous malformation, or much less likely a small area of hemorrhage, given its heterogeneous appearance and lack of surrounding edema I cannot exclude a mild component of loss of burleson/white differentiation/cerebral edema, which may fit with patient's history of cardiac arrest. Surrounding sulci and basal cisterns remain well-visualized. Otherwise, no acute hemorrhage, mass effect, midline shift, hydrocephalus, or acute, large territorial infarct. Mild cerebral atrophy. There are moderate areas of decreased attenuation in the white matter of the cerebral hemispheres. These are nonspecific findings and may be related to microangiopathy (hypertension, diabetes, atherosclerosis), given the patient's age. It might be difficult to evaluate for small areas of ischemia without diffusion imaging by MRI. CRANIOCERVICAL JUNCTION: No significant abnormality. ORBITS: No significant abnormality of visualized orbits. SINUSES / MASTOIDS: Mild to moderate mucosal thickening seen in the ethmoids. ADDITIONAL FINDINGS: Atherosclerotic disease is seen in the anterior and posterior circulation. IMPRESSION: 1. Subtle, diffuse loss of burleson/white differentiation may be present, which can be seen with anoxia. 2. Vague area of increased attenuation in the precentral gyral region inferiorly on the right, as described above in detail. The possibility that this represents a small area of hemorrhage cannot entirely be excluded. Pre and postcontrast MRI of the brain may be helpful for further evaluation. 3. For the above 2 reasons, short-term follow-up CT would be of benefit to ensure stability and/or resolution of these findings. Signer Name: Jacobo Lopes MD, III Signed: 10/13/2019 7:02 PM Workstation Name: [id number] Transcribed By: HR Dictated By: Jacobo Lopes MD Electronically Authenticated By: Jacobo Lopes MD Signed Date/Time: 10/13/191901 DD/ 47 TD/TT: - Differential Diagnosis ACS, respiratory arrest, cardiac arrest Critical Care Time: Yes Critical care time in (mins) excluding proc time.: 45 Critical care attestation.: If time is entered above; I have spent that time in minutes in the direct care of this critically ill patient, excluding procedure time. ED Disposition Clinical Impression: Cardiac arrest, Leukocytosis, Abnormal head CT Disposition: DC/TX-70 ANOTHER TYPE HLTHCARE Is pt being admited?: No Does the pt Need Aspirin: No Condition: Serious Referrals: PRIMARY CAREMD [Primary Care Provider] - 3-5 Days Time of Disposition: 20:49 (Awaiting transport)
[2019-10-13] MEDS ORDERED: SODIUM CHLORIDE 0.9% 500 ML 500 ML IV ONE (17:24)
[2019-10-13 18:05] LABS: ABG Base Excess -14.1 mmol/L (-2.0-3.0); ABG HCO3 11.9 mmol/L (20.0-26.0); ABG Methemoglobin 0.2 % (0.0-1.5); ABG Oxygen Saturation 99.4 % (95.0-99.0); ABG PCO2 28.1 mm Hg; ABG PH 7.243 pH Units (7.350-7.450)
[2019-10-13 18:06] LABS: ABG PO2 585.2 mm Hg (80.0-90.0)
--- NOTE | 2019-10-13 19:06 | Cat Scan Report ---
CT head/brain wo con INDICATION / CLINICAL INFORMATION: 64 years Female; Cardiac arrest, unresponsive. TECHNIQUE: Routine CT head without contrast. All CT scans at this location are performed using CT dos e reduction for ALARA by means of automated exposure control. COMPARISON: None. FINDINGS: BRAIN / INTRACRANIAL CONTENTS: Small area of increased attenuation is seen in the periphery of the pr ecentral gyrus rightward of midline. This area could represent cortical laminar encroaches from a sub acute to chronic infarct, a cavernous malformation, or much less likely a small area of hemorrhage, g iven its heterogeneous appearance and lack of surrounding edema I cannot exclude a mild component of loss of burleson/white differentiation/cerebral edema, which may fit with patient's history of cardiac arrest. Surrounding sulci and basal cisterns remain well-visualize d. Otherwise, no acute hemorrhage, mass effect, midline shift, hydrocephalus, or acute, large territoria l infarct. Mild cerebral atrophy. There are moderate areas of decreased attenuation in the white matter of the cerebral hemispheres. Th sima are nonspecific findings and may be related to microangiopathy (hypertension, diabetes, atheroscl erosis), given the patient's age. It might be difficult to evaluate for small areas of ischemia witho ut diffusion imaging by MRI. CRANIOCERVICAL JUNCTION: No significant abnormality. ORBITS: No significant abnormality of visualized orbits. SINUSES / MASTOIDS: Mild to moderate mucosal thickening seen in the ethmoids. ADDITIONAL FINDINGS: Atherosclerotic disease is seen in the anterior and posterior circulation. IMPRESSION: 1. Subtle, diffuse loss of burleson/white differentiation may be present, which can be seen with anoxia. 2. Vague area of increased attenuation in the precentral gyral region inferiorly on the right, as vlad cribed above in detail. The possibility that this represents a small area of hemorrhage cannot entire ly be excluded. Pre and postcontrast MRI of the brain may be helpful for further evaluation. 3. For the above 2 reasons, short-term follow-up CT would be of benefit to ensure stability and/or re solution of these findings. Signer Name: Jacobo Lopes MD, III Signed: 10/13/2019 7:02 PM Workstation Name: [id number]
[2019-10-13 19:24] LABS: Hematocrit 34.5 % (30.3-42.9); Hemoglobin 10.6 gm/dl (10.1-14.3); Mean Corpuscular HGB Conc 31 % (30-34); Mean Corpuscular Volume 84 fl (79-97); Platelet Count 143 K/mm3 (140-440); Red Blood Count 4.09 M/mm3 (3.65-5.03); Red Cell Distribution Width 16.2 % (13.2-15.2)
--- NOTE | 2019-10-13 19:32 | XRay Report ---
CHEST 1 VIEW INDICATION / CLINICAL INFORMATION: Status post cardiac arrest. COMPARISON: None available. FINDINGS: SUPPORT DEVICES: Endotracheal tube tip is in the midthoracic trachea at the level of the sternoclavic ular joints, and satisfactory position. 4.3 cm above the maya. HEART / MEDIASTINUM: Normal heart size. Slight leftward shift of mediastinal organs is noted. LUNGS / PLEURA: Left retrocardiac consolidative opacity with air bronchograms. No evident pneumothora x within limitations imposed by supine positioning and portable technique. There are multiple old left-sided rib fractures. No definite acute skeletal abnormality. IMPRESSION: Satisfactory endotracheal tube position. Left lower lobe consolidative opacity with air bronchograms may be from atelectasis, pneumonia and/or aspirated material. Suggestion of volume loss in left hemithorax leads me to favor atelectasis. Signer Name: Sony Bledsoe MD Signed: 10/13/2019 7:28 PM Workstation Name: [id number]
[2019-10-13 19:38] LABS: INR 1.24 (0.87-1.13)
[2019-10-13 19:39] LABS: Partial Thromboplastin Time 34.1 Sec. (24.2-36.6)
[2019-10-13 19:53] LABS: Creatine Kinase MB 6.2 ng/mL (0.0-4.0)
[2019-10-13 19:55] LABS: Albumin 3.4 g/dL (3.9-5); Calcium 8.1 mg/dL (8.4-10.2)
[2019-10-13 20:08] LABS: Band Neutrophils # (Manual) 0.7 K/mm3; Basophils % (Manual) 0 % (0.0-1.8); Eosinophils % (Manual) 0 % (0.0-4.3); Total Cells Counted 100
[2019-10-13 20:12] LABS: Burr Cells Rare; Macrocytosis Few; Ovalocytes Few
[2019-10-13 20:14] LABS: Platelet Estimate Consistent w Auto
[2019-10-13] MEDS ORDERED: niCARdipine 50 MG in SODIUM CHLORIDE 0.9% 250ML 230 ML IV SCH (21:00)
[2019-10-14 02:27] VITALS: BP 180/70
== END 2019-10-13 22:20 | disposition other institution (70) ==
LOC: ED 16:59
DX: I46.9 Cardiac arrest, cause unspecified (principal); D72.829 Elevated white blood cell count, unspecified; R93.89 Abnormal findings on diagnostic imaging of other specified body structures; I12.0 Hypertensive chronic kidney disease with stage 5 chronic kidney disease or end stage renal disease; N18.6 End stage renal disease; E11.22 Type 2 diabetes mellitus with diabetic chronic kidney disease; Z99.2 Dependence on renal dialysis; Z79.899 Other long term (current) drug therapy; Z98.890 Other specified postprocedural states; Z88.0 Allergy status to penicillin; Z86.73 Personal history of transient ischemic attack (TIA), and cerebral infarction without residual deficits
CPT/HCPCS: 31500; 36415; 70450; 71045; 80053; 82550; 82553; 82803; 82805; 83735; 84145; 84484; 85007; 85025; 85610; 85730; 87040; 87070; 87205; 93005; 93010; 96365; 99291; J7050; 94002